=== PATIENT | male | born 1970 | race Caucasian/White ===

== ENCOUNTER 2017-12-09 16:49 | Emergency (ER) | payer BC ==
[2017-12-09 17:00] VITALS: BP 117/66
[2017-12-09] MEDS ORDERED: Aspirin 81 mg CHEW TAB* 81 MG TAB.CHEW ONE (17:33)
[2017-12-09] MEDS ORDERED: Aspirin 81 mg CHEW TAB* 81 MG TAB.CHEW PO ONE (17:36)
--- NOTE | 2017-12-09 17:42 | UC ---
Cardiac HPI - HPI Summary HPI Summary: 47 yo c/o intermittent chest discomfort since Tuesday, lasts about a second or so, then goes away. Frequency unclear, a couple times an hour. Not debilitating. Unable to correlate with position, although possibly worse lying down. Does not wake him up at night. Discomfort is mid left chest, just lateral to the sternum, describes in a small region. Unable to associate worsening or alleviating factors. No hx of this in the past. Possibly heart murmur as a child, but not sure what it was exactly. No recent change in medications, does not take supplements. + coffee x approx 3 mugs / day. Nonsmoker. Active (athletic) with sports. No rash. No GI issues. - History of Current Complaint Chief Complaint: UCChestPain Stated Complaint: CHEST COMPLAINT Time Seen by Provider: 12/09/17 17:03 Hx Obtained From: Patient Pain Intensity: 1 - Allergy/Home Medications Allergies/Adverse Reactions: Allergies Allergy/AdvReac Type Severity Reaction Status Date / Time No Known Allergies Allergy Verified 12/09/17 17:00 PMH/Surg Hx/FS Hx/Imm Hx Previously Healthy: Yes - Surgical History Surgical History: Yes Surgery Procedure, Year, and Place: Sinoplasty, 2012, [place]. Stomach Biopsy, 1994 - Family History Known Family History: Positive: None - Social History Alcohol Use: Weekly Substance Use Type: None Smoking Status (MU): Never Smoked Tobacco Review of Systems Constitutional: Negative Skin: Negative Eyes: Negative ENT: Negative Respiratory: Negative Cardiovascular: Other - see hpi Gastrointestinal: Negative Genitourinary: Negative Motor: Negative Neurovascular: Negative Musculoskeletal: Negative Neurological: Negative Psychological: Negative Is Patient Immunocompromised?: No All Other Systems Reviewed And Are Negative: Yes Physical Exam Triage Information Reviewed: Yes Appearance: Well-Appearing, Well-Nourished Vital Signs: Initial Vital Signs Temp 98.1 F 12/09/17 16:52 Pulse 73 12/09/17 16:52 Resp 16 12/09/17 16:52 BP 117/66 12/09/17 16:52 Pulse Ox 99 12/09/17 16:52 Vital Signs Reviewed: Yes Eye Exam: Normal - grossly normal ENT Exam: Normal Neck exam: Normal Neck: Positive: Supple Respiratory Exam: Normal Respiratory: Positive: Chest non-tender - nontender at examination, but reports pain prior to physicl examination, Lungs clear, Normal breath sounds, No respiratory distress, No accessory muscle use Cardiovascular Exam: Normal Cardiovascular: Positive: RRR, No Murmur, Pulses Normal, Brisk Capillary Refill Abdominal Exam: Normal Abdomen Description: Positive: Nontender Musculoskeletal Exam: Normal - gait steady, moves x 4 exts. Without unilateral or significant edema. Neurological Exam: Normal - grossly nonfocal Psychological Exam: Normal - conversing easily and appropriately. NAD. Skin Exam: Normal - no visible or reported rash - Assessment/Plan Course Of Treatment: D/w SHIRIN Capone. EKG sr at 71 bpm. No old for comp pr 149. ? early repol? Pt given asa 324mg po x 1 here. Recommend Emerg Dept eval. Mr. Emmanuel carefully considered, agrees to go to ED. Politely but firmly declines EMS. Questions as posed answered to the best of my ability. - Clinical Impression Provider Diagnoses: chest pain Discharge - Sign-Out/Discharge Documenting (check all that apply): Patient Departure - Discharge Plan Condition: Stable Disposition: HOME-RECOMMEND TO ED Patient Education Materials: Chest Pain (ED) Referrals: Derrick Jenkins MD [Primary Care Provider] - Additional Instructions: Please go to the Emergency Department. Call 911 if problems in the meantime. - Billing Disposition and Condition Condition: STABLE Disposition: Home-Recommend to ED
[2017-12-10] MEDS ORDERED: Aspirin 81 mg CHEW TAB* 81 MG TAB.CHEW PO SCH (09:00)
== END 2017-12-09 17:45 | disposition home health service (06) ==
LOC: UCEAST 16:49
DX: R07.89 Other chest pain (principal)
CPT/HCPCS: 93005; 99202; A9270-GY; G0463

== ENCOUNTER 2017-12-09 18:23 | Emergency (ER) | payer BC ==
--- NOTE | 2017-12-09 19:38 | ED ---
HPI Chest Pain - HPI Summary HPI Summary: This patient is a 47 year old M referred to [facility] by [facility] with a chief complaint of intermittent (several times an hour) mid-sternal CP that began on . The patient rates the pain 0/10 in severity. Symptoms aggravated by nothing. Symptoms alleviated by nothing. Patient reports lightheadedness ( during the intermittent CP). Patient denies SOB, headache, double vision, blurred vision, vomiting, diarrhea, abd pain, ear ache, sore throat, rash, and bruising. Patient reports he has a history of GERD. Patient is concerned if this is related to an increase in his coffee consumption. - History of Current Complaint Chief Complaint: EDChestPainROMI Hx Obtained From: Patient Onset/Duration: Started Days Ago, Atraumatic, Still Present Timing: Intermittent, Lasting Minutes Initial Severity: Mild Current Severity: Mild Pain Intensity: 0 Pain Scale Used: 0-10 Numeric Chest Pain Location: Mid Sternal Chest Pain Radiates: No Aggravating Factor(s): Nothing Alleviating Factor(s): Nothing Associated Signs and Symptoms: Positive: Other: - Positive lightheadedness ( during the intermittent CP). Negative SOB, headache, double vision, blurred vision, vomiting, diarrhea, abd pain, ear ache, sore throat, rash, and bruising. - Allergy/Home Medications Allergies/Adverse Reactions: Allergies Allergy/AdvReac Type Severity Reaction Status Date / Time No Known Allergies Allergy Verified 12/09/17 17:00 Home Medications: Home Medications Atomoxetine(NF) [Strattera(NF)] 60 mg PO DAILY 12/09/17 [History Confirmed 12/09] Citalopram TAB* [CeleXA TAB*] 40 mg PO DAILY 12/09/17 [History Confirmed ] PMH/Surg Hx/FS Hx/Imm Hx Previously Healthy: No Cardiovascular History: Denies: Hx Myocardial Infarction GI History: Reports: Hx Gastroesophageal Reflux Disease - Surgical History Surgery Procedure, Year, and Place: Sinoplasty, 2012, [place]. Stomach Biopsy, 1994 Hx Anesthesia Reactions: No Infectious Disease History: No Infectious Disease History: Denies: Traveled Outside the [place] in Last 30 Days - Family History Known Family History: Positive: Diabetes, Other - Hypothyroid Negative: Cardiac Disease - Social History Occupation: Employed Full-time Lives: With Family Alcohol Use: Weekly Hx Substance Use: No Substance Use Type: Reports: None Hx Tobacco Use: Yes Smoking Status (MU): Current Some Day Smoker Review of Systems Negative: Blurred Vision, Diplopia Negative: Sore Throat, Ear Ache Positive: Chest Pain Negative: Shortness Of Breath Negative: Abdominal Pain Negative: dysuria Negative: Edema Negative: Rash, Bruising Neurological: Other - Positive lightheadedness Negative: Headache All Other Systems Reviewed And Are Negative: No Physical Exam - Summary Physical Exam Summary: Appearance: Alert, conversive, nontoxic appearing Skin: Warm, dry, no mottling, no rashes, no contusions HEENT: EOMI, PERRL, moist mucous membranes Neck: No masses on the neck, supple Respiratory: Clear to auscultation, breath sounds present, no rales, no rhonchi , no wheezes Cardiovascular: RRR, pulses are symmetrical in both lower and upper extremities Abdomen: Soft, non-tender Bowel Sounds: Present Musculoskeletal: No CVA tenderness, no obvious deformity, moving all extremities in a grossly normal manner Neurological: A&Ox3, CN II-XII Intact, moving all extremities symmetrically Psychiatric: Slightly anxious Triage Information Reviewed: Yes Vital Signs On Initial Exam: Initial Vitals Temp Pulse Resp BP Pulse Ox 97.8 F 74 16 121/74 98 12/09/17 18:29 12/09/17 18:29 12/09/17 18:29 12/09/17 18:29 12/09/17 18:29 Vital Signs Reviewed: Yes Diagnostics - Vital Signs Vital Signs Temp Pulse Resp BP Pulse Ox 12/09/17 18:29 97.8 F 74 16 121/74 98 - Laboratory Result Diagrams: 12/09/17 20:05 12/09/17 20:05 Lab Statement: Any lab studies that have been ordered have been reviewed, and results considered in the medical decision making process. - Radiology CXR Radiology Interpretation Completed By: ED Physician - CXR reveals, per ED physician, no acute disease. - EKG 1837 Cardiac Rate: NL EKG Rhythm: Sinus Rhythm - [address] Segment: Normal Ectopy: None Re-Evaluation - Re-Evaluation First Eval Re-Evaluation Time: 20:42 Change: Unchanged Comment: Discussed results and plan of care with patient Chest Pain Course/Dx - Course Course Of Treatment: This patient is a 47 year old M referred to [facility] by [facility] with a chief complaint of intermittent (several times an hour) mid-sternal CP that began on 12/07/2017. Physical Exam Findings: Slight anxiety. An EKG reveals nml sinus rhythm at 64 BPM, nml ST segment, and no ectopy. CXR reveals, per ED physician, no acute disease. Bloodwork obtained. Patient will be discharged with follow up from PCP. The patient is agreeable with this plan. - Chest Pain Differential Diagnosis/HQI/PQRI: Acute MS, Chest Wall, Other: - pericarditis, hyperthyroid, reflux, pneumonia, pe - Diagnoses Provider Diagnoses: Chest pain Discharge - Sign-Out/Discharge Documenting (check all that apply): Patient Departure - stable - Discharge Plan Condition: Stable Disposition: HOME Patient Education Materials: Chest Pain (ED) Referrals: Derrick Jenkins MD [Primary Care Provider] - Additional Instructions: Follow up with your primary care physician. Take 81mg of aspirin daily. Discuss with your doctor the need for an outpatient stress test of your heart. Return if worse or any new symptoms. Attestations Scribe Attestation: This is vito Marks documenting for attending Clarisa King MD. User Type: Provider with Scribe Provider Attestation: The documentation recorded by the lyndaibe accurately reflects the service I personally performed and the decisions made by me.
[2017-12-09 20:14] LABS: ABS Basophils 0.1 10^3/ul (0-0.2); ABS Eosinophils 0.2 10^3/ul (0-0.6); ABS Lymphocytes 1.8 10^3/ul (1.0-4.8); ABS Monocytes 0.5 10^3/ul (0-0.8); ABS Neutrophils 4.7 10^3/ul (1.5-7.7); ABS Nucleated RBC 0 10^3/ul; Eosinophil % 3.2 % (0-6); Hematocrit 44 % (42-52); Hemoglobin 15.2 g/dl (14.0-18.0); Lymphocyte % 24.7 % (25-47); Mean Corpuscular HGB Conc 35 g/dl (31-36); Mean Corpuscular Hemoglobin 30 pg (27-31); Mean Corpuscular Volume 86 fL (80-94); Mean Platelet Volume 7.8 um3 (7.4-10.4); Nucleated Red Blood Cells % 0.1; Platelet Count 275 10^3/ul (150-450); Red Blood Count 5.12 10^6/ul (4.00-5.40); Red Cell Distribution Width 14 % (10.5-15); White Blood Count 7.4 10^3/ul (3.5-10.8)
[2017-12-09 20:34] LABS: EGFR Non-African American 86.8 (>60)
[2017-12-09 21:01] VITALS: BP 114/76
--- NOTE | 2017-12-10 07:22 | RAD ---
HISTORY: chest pain COMPARISONS: None VIEWS: 1: frontal portable view of the chest at 7:51 PM FINDINGS: LINES AND TUBES: None. CARDIOMEDIASTINAL SILHOUETTE: The cardiomediastinal silhouette is normal for portable technique. PLEURA: The costophrenic angles are sharp. No pleural abnormalities are noted. LUNG PARENCHYMA: The lungs are clear. ABDOMEN: The upper abdomen is clear. There is no subphrenic gas. BONES AND SOFT TISSUES: No bone or soft tissue abnormalities are noted. IMPRESSION: NO ACTIVE CARDIOPULMONARY DISEASE. R1
== END 2017-12-09 21:18 | disposition home or self-care (01) ==
LOC: ED 18:23
DX: R07.89 Other chest pain (principal); R42 Dizziness and giddiness; F41.9 Anxiety disorder, unspecified; Z72.0 Tobacco use
CPT/HCPCS: 36415; 71045; 80053; 83735; 84443; 84484; 85025; 93005; 99283